=== PATIENT | male | born 1980 | race Hispanic/Latino ===

== ENCOUNTER 2024-05-26 07:11 | Emergency (ER) | payer OTHER, SELFPAY ==
[2024-05-26] MEDS ORDERED: Bupivacaine PF 0.5% 30 ML VIAL ONE (08:14)
[2024-05-26] MEDS ORDERED: Ondansetron PF 4 MG/2 ML Vial ONE (08:19)
[2024-05-26 08:22] LABS: #Basophils 0.04 10x3/uL (0.0-0.2); #Eosinophils 0.07 10x3/uL (0.0-0.5); #Monocytes 0.45 10x3/uL (0.0-1.1); #Neutrophils 4.67 10x3/uL (1.5-8.4); %Basophils 0.6 % (0.0-2.0); %Lymphocytes 21.9 % (18.0-47.0); %Monocytes 6.7 % (0.0-10.0); %Neutrophils 69.5 % (40.0-75.0); Hematocrit 43.7 % (38.8-50.0); Hemoglobin 15.2 g/dL (13.5-17.5); Mean Corpuscular HGB CONC 34.8 g/dL (32.0-36.0); Mean Corpuscular Volume 89.2 fL (81.2-95.1); Mean Platelet Volume 8.6 fL (7.4-10.4); Platelet Count 288 10x3/uL (150-450); RBC Distribution Width 11.5 % (11.5-14.5); White Blood Cell (WBC) Count 6.7 10x3/uL (3.5-10.5)
[2024-05-26 08:40] LABS: ALT (SGPT) 16 U/L (8-55); AST (SGOT) 17 U/L (5-34); Albumin 4.4 g/dL (3.5-5.0); Alkaline Phosphatase 104 U/L (40-110); Anion Gap 16 mmol/L (10-20); BUN (Urea Nitrogen) 15 mg/dL (8.9-20.6); Bilirubin, Total 0.5 mg/dL (0.2-1.2); Calc. Creatinine Clearance 0 mL/min (70-130); Calcium 9.7 mg/dL (7.8-10.44); Carbon Dioxide 24 mmol/L (22-29); Chloride 105 mmol/L (98-107); Estimated GFR 112; Globulin 3.4 g/dL (2.4-3.5); Glucose 99 mg/dL (70-105); Potassium 4.2 mmol/L (3.5-5.1); Protein, Total 7.8 g/dL (6.0-8.3); Sodium 141 mmol/L (136-145)
== END 2024-05-26 10:00 | disposition home or self-care (01) ==
LOC: CSHERS 07:11
DX: L05.91 Pilonidal cyst without abscess (principal); R42 Dizziness and giddiness; Z55.0 Illiteracy and low-level literacy
CPT/HCPCS: 10080; 80053; 85025; 93005; 96361; 96374; J0665; J2405